=== PATIENT | male | born 1970 | race African-American/Black ===

== ENCOUNTER 2016-10-05 22:58 | Emergency (ER) | payer OTHER ==
[~2016-10-05] VITALS: Ht 167.6 cm; Wt 128.3 kg
[~2016-10-05 22:58] MED LIST: ATIVAN0.5 MG PO; ATIVAN1 MG PO; FLEXERIL10 MG PO; LORAZEPAM0.5 MG PO; LORTAB 5-325 M1 EACH PO; METFORMIN HCL500 MG PO; MOTRIN600 M1 PO; MOTRIN600 MG PO; NAPROSYN500 MG PO; PROZAC10 MG PO; SKELAXIN800 MG PO; TAMIFLU75 MG PO; TRAMADOL HCL50 MG PO; ULTRAM50 MG PO; XANAX0.25 MG PO
[2016-10-05] MEDS ORDERED: NAPROSYN500 MG PO (23:34)
[2016-10-06 00:37] VITALS: BP 154/88
== END 2016-10-06 00:39 | disposition home or self-care (01) ==
LOC: EME 22:58
DX: S63.501A Unspecified sprain of right wrist, initial encounter (principal); X50.9XXA Other and unspecified overexertion or strenuous movements or postures, initial encounter; Y93.E9 Activity, other interior property and clothing maintenance
CPT/HCPCS: 73110; 99281; 99285

== ENCOUNTER 2017-01-14 21:32 | Emergency (ER) | payer OTHER ==
[~2017-01-14] VITALS: Ht 167.6 cm; Wt 126.3 kg
[2017-01-14] MEDS ORDERED: FLUOXETINE HCL10 MG PO (22:00)
[2017-01-14] MEDS ORDERED: IBUPROFEN800 MG PO (22:01)
[2017-01-14] MEDS ORDERED: NAPROXEN500 MG PO (23:41)
[2017-01-15 00:10] VITALS: BP 141/82
== END 2017-01-15 00:14 | disposition home or self-care (01) ==
LOC: EME 21:32
DX: M25.561 Pain in right knee (principal); M79.89 Other specified soft tissue disorders; F17.200 Nicotine dependence, unspecified, uncomplicated
CPT/HCPCS: 73564; 93971; 99281; 99284

== ENCOUNTER 2017-01-28 15:02 | Emergency (ER) | payer OTHER ==
[~2017-01-28] VITALS: Ht 167.6 cm; Wt 125.9 kg
[~2017-01-28 15:02] MED LIST changes: +FLUOXETINE HCL10 MG PO; +IBUPROFEN800 MG PO; +NAPROXEN500 MG PO
[2017-01-28] MEDS ORDERED: PAIN MED PO (15:50)
[2017-01-28 16:33] LABS: HEMATOCRIT 44.2 % (38.0-50.0); MCH 29.2 PG (29.0-34.0); MCHC 33.5 G/DL (30.0-36.0); MCV 87.4 FL (86-99); MEAN PLAT.VOLUME 10.3 uM^3 (9.0-12.4); PLATELET COUNT 226 K/uL (156-360); RBC DIS.WIDTH-CV 12.7 % (11.8-14.6); RBC DIS.WIDTH-SD 39.9 % (39-53); RED BLOOD COUNT 5.06 M/uL (4.00-5.50)
[2017-01-28 16:42] LABS: CHLORIDE 103 mEq/L (99-109); POTASSIUM 3.8 mEq/L (3.7-5.4); SODIUM 140 mEq/L (136-147)
[2017-01-28 16:44] LABS: GLUCOSE 164 mg/dL (70-99)
[2017-01-28 16:45] LABS: ANION GAP 12 MEQ/L (2-14)
[2017-01-28 16:48] LABS: GFR ESTIMATE (CALCULATED) > 59 mL/min/
[2017-01-28 16:49] LABS: UREA NITROGEN (BUN) 14 mg/dL (9-23)
[2017-01-28] MEDS ORDERED: ULTRAM50 MG PO (18:19)
[2017-01-28 19:24] VITALS: BP 152/97
== END 2017-01-28 19:24 | disposition home or self-care (01) ==
LOC: EME 15:02
PROVIDERS: Nurse Practitioner Family
DX: M77.32 Calcaneal spur, left foot (principal); M25.562 Pain in left knee
CPT/HCPCS: 73610; 80048; 85027; 93971; 99281; 99284